=== PATIENT | female | born 1940 | race Caucasian/White ===

== ENCOUNTER → 2017-09-18 06:36 | Outpatient (CLI) | payer MEDICARE, OTHER, SELFPAY ==
--- NOTE | 2017-09-18 15:30 | STRESSREP ---
Stress Test Report Date: 09/18/2017 Procedure: Pharmacologic stress nuclear imaging study Indications: Shortness of breath/dyspnea; palpitations Consent: Per the patient Procedure: The patient underwent pharmacologic (Regadenoson) evaluation with a peak heart rate of 103 bpm (72% predicted maximal heart rate) with a peak blood pressure 140/64 mmHg. The baseline ECG demonstrated normal sinus rhythm subtle nonspecific ST/T-wave abnormality. The peak pharmacologic ECG demonstrated no obvious ECG changes. There were no cardiac dysrhythmias pretest, during pharmacologic infusion, or recovery. There was no report of chest discomfort during pharmacologic infusion or recovery. The examination was discontinued secondary to completion of protocol. Impression: 1. Pharmacologic (Regadenoson) evaluation 2. Peak pharmacologic ECG demonstrating continued nonspecific ST and T-wave abnormality with no obvious ECG changes compared to baseline 3. Nuclear images pending Myocardial perfusion imaging study: Technique: The patient was injected with 12.0 mCi of technetium 99m Cardiolite and subsequently rest SPECT Cardiolite nuclear imaging was obtained in the horizontal long, vertical long, and short axis views. The patient underwent pharmacologic (Regadenoson) evaluation with a peak heart rate of 103 bpm (72% predicted maximal heart rate) with a peak blood pressure 140/64 mmHg. The patient was injected with 34.7 mCi of technetium 99m Cardiolite and subsequently stress SPECT Cardiolite nuclear imaging was obtained in the horizontal long, vertical long, and short axis views. A gated Cardiolite study at peak stress was obtained. Interpretation: Rest and stress SPECT Cardiolite nuclear imaging status post realignment, normalization, and attenuation correction, demonstrates the appearance of relative uniform tracer uptake and myocardial perfusion appearing within normal limits. There is end systolic thickening and brightening. The gated Cardiolite study demonstrates myocardial thickening and inward wall motion. The reported LVEF is 83%. Impression: 1. Rest and stress SPECT Cardiolite nuclear imaging demonstrates the appearance of relative uniform tracer uptake and myocardial perfusion appearing within normal limits. 2. The gated Cardiolite study reports an LVEF of 83%. This note was generated with [employer] software. It may contain incorrect words, spelling, and punctuation that were not noted in checking the note before signing.
== END ==
PROVIDERS: Family Provider Internal Medicine; PCP Internal Medicine; Visit Provider Family Medicine
DX: R06.02 Shortness of breath (principal); R00.2 Palpitations; R07.89 Other chest pain
CPT/HCPCS: 78452; 93017; A9500; A4216; J2785

== ENCOUNTER 2019-07-10 00:27 | Emergency (ER) | payer MEDICARE, OTHER, SELFPAY ==
[2019-07-10 00:28] VITALS: BP 183/87; PULSE 89; RESP 16; TEMP 36.6; O2SAT 94; BMI 35.1
[2019-07-10 00:31] VITALS: BP 162/86
--- NOTE | 2019-07-10 00:43 | ED.VIS.GEN ---
History of Present Illness Chief Complaint: Hyperglycemia Informant: Patient, Significant Other Onset: Today Narrative: Patient states that earlier today she had a cortisone injection to her right knee. She was advised that it may raise her blood sugar as she is a diabetic. Tonight it was 285. She called the nursing line. They asked her to take her blood pressure and it was elevated and told her to come to the emergency room. She had a slight headache. No chest pain or shortness of breath. No exertional symptoms. No vision changes. No neurologic deficits. Past Medical History - Allergies and Home Meds Allergies/Adverse Reactions: Allergies No Known Allergies Allergy (Verified 10/19/17 12:35) Primary Care Physician: Martha Gerard MD [Primary Care Provider] - 3-5 Days if not improving Surgical History: appendectomy, hysterectomy, tonsillectomy, - Smoking Status: Former smoker Review of Systems General: Denies: Chills, Fever, Sweats Eyes: Denies: Visual changes - bilaterally, Diplopia ENT: Denies: Rhinorrhea, Sore throat Cardiovascular: Denies: Chest pain, Palpitations Respiratory: Denies: Dyspnea, Cough, Dyspnea on exertion Gastrointestinal: Denies: Abdominal pain, Nausea, Vomiting, Diarrhea, Melena, Hematochezia Genitourinary: Denies: Dysuria, Hematuria, Frequency Musculoskeletal: Denies: Back pain, Extremity Pain Skin: Denies: Rash, Wounds Neurological: Reports: Headache. Denies: Weakness, Numbness Psych: Denies: Depression, Anxiety, Suicidal thoughts, Suicidal ideations Endocrine: Denies: Polyuria, Polydipsia, Heat intolerance Hematologic: Denies: Easy bruising, Easy bleeding, Lymphadenopathy Allergy: Denies: Uticaria, Swelling of the mouth, Swelling of the tongue Physical Exam Vital Signs/Narrative: Vital Signs Temp Pulse Resp BP Pulse Ox 07/10/19 00:31 162/86 H 07/10/19 00:28 97.8 F 89 16 183/87 H 94 Inital Vital Signs reviewed: Yes General: Well nourished, Well developed, No Acute Distress Head: Normocephalic, Atraumatic Eyes: Perrl, EOMI ENT: Moist mucous membranes, No rhinorrhea Neck: Supple, Nontender Cardiovascular: Regular rate, Regular rhythm, No murmurs Respiratory: No distress, CTA bilaterally, Chest nontender Abdomen: Soft, Nontender, Nondistended, Normal bowel sounds Back: Nontender, Normal Inspection Extremities: Nontender, No edema Skin: Normal color, No rash Neurological: Alert, Oriented x3, Cranial nerves II-XII grossly intact, Normal Strength, Normal Sensation Psychological: Normal affect, Normal Mood Diagnostic/Tx/Re-eval - Medical Decision Making Annual blood pressure is 166/82. I explained to the patient the cortisone commonly can cause elevated blood sugars as well as elevated blood pressure. I do not see any red flags tonight regarding her pressures. I would have her follow-up with her doctor return if worsening or concerns ED Disposition - Plan for ED Patient: Disposition: Home or Assisted Living Diagnosis: Medication side effect Instructions: DRUG REACTION, Other Referrals: Martha Gerard MD [Primary Care Provider] - 3-5 Days if not improving
[2019-07-10 01:01] VITALS: BP 166/82; RESP 16
[2019-07-10 01:21] VITALS: BP 166/82; PULSE 85; RESP 18; O2SAT 96
[2019-07-10 07:10] LABS: Bedside Glucose 212 mg/dL (70-110)
== END 2019-07-10 01:21 | disposition home or self-care (01) ==
PROVIDERS: Emergency Provider Emergency Medicine; Family Provider Internal Medicine; PCP Internal Medicine
DX: E11.65 Type 2 diabetes mellitus with hyperglycemia (principal); T38.0X5A Adverse effect of glucocorticoids and synthetic analogues, initial encounter; Y92.9 Unspecified place or not applicable; Z79.84 Long term (current) use of oral hypoglycemic drugs; Z79.899 Other long term (current) drug therapy; Z87.891 Personal history of nicotine dependence
CPT/HCPCS: 82962; 99282

== ENCOUNTER → 2023-12-25 | Outpatient (CLI) | payer MEDICARE, SELFPAY ==
--- NOTE | 2023-12-25 09:22 | BI_ITS ---
MAMMOGRAPHY - BILATERAL DIAGNOSTIC REASON FOR EXAM: Female, 83 years old. Palpable lump in the deep slightly inferior aspect of the left breast. PERTINENT HISTORY: Mother with breast cancer. Aunt with breast cancer. TECHNIQUE: Digital bilateral breast gucci (3D mammographic acquisition) in the CC and MLO projections. 2-D mediolateral oblique (MLO) and craniocaudad (CC) views of both breasts were obtained. CAD: Full Field Digital Mammography with Computer Added Detection was performed. COMPARISON: Comparison is made with prior study dated October 30, 2013. FINDINGS: Breast Composition: There are scattered areas of fibroglandular density. There are no dominant masses or suspicious calcifications. The previously seen nodular density in the upper outer quadrant of the right breast is not seen at this time. Interval resolution of a nodular density in the deep inferior central portion of the left breast. No new nodule is seen. Stable small benign-appearing lateral axillary lymph nodes. No other significant abnormalities are identified. BI/DIAG MAMM W/CAD, BILAT IMPRESSION: Negative diagnostic mammogram. With the patient''s history of a palpable lump in the left breast, correlation with ultrasound is recommended. ASSESSMENT CATEGORY: BIRADS Category 0: Incomplete. Need additional imaging evaluation. A letter regarding these results will be sent to the patient by the facility within 30 days. Approximately 10% of breast cancers are not detected by mammography. A normal mammogram should not delay biopsy of a clinically suspicious abnormality. Electronically Signed: Basil Walker MD at 12:34 EDT ,
--- NOTE | 2023-12-25 09:23 | US_ITS ---
STUDY: ULTRASOUND BREAST - LEFT REASON FOR EXAM: Female, 83 years old. Palpable lump left breast. TECHNIQUE: Axial and longitudinal images of the LEFT breast were performed with a high resolution ultrasound transducer. # OF IMAGES: 8 COMPARISON: Comparison is made with prior mammogram done earlier today. FINDINGS: LEFT Breast: The palpable lump corresponds to a small superficial sebaceous cyst measuring 7 mm x 7 mm x 4 mm. This lies just deep to the subcutaneous tissue. US/Breast Limited Unilateral IMPRESSION: The palpable lump corresponds to a sebaceous cyst measuring 7 mm x 7 mm x 4 mm just deep to the subcutaneous tissue. ASSESSMENT CATEGORY: BIRADS Category 2: Benign. A letter regarding these results will be sent to the patient by the facility within 30 days. Electronically Signed: Basil Walker MD at 14:43 EDT ,
== END | disposition home or self-care (01) ==
LOC: OPBI 09:18
PROVIDERS: PCP Internal Medicine; Referring Provider Clinical Nurse Specialist; Visit Provider Clinical Nurse Specialist
DX: N63.24 Unspecified lump in the left breast, lower inner quadrant (principal); Z87.898 Personal history of other specified conditions
CPT/HCPCS: 76642; 77062; 77066; G0279

== ENCOUNTER → 2025-02-23 | Outpatient (CLI) | payer MEDICARE, SELFPAY ==
--- NOTE | 2025-02-23 10:17 | RAD_ITS ---
PROCEDURE: LUMBAR SPINE 2 OR 3 VIEWS 02/23/2025 REASON FOR EXAM: SPRAIN OF LIGAMENTS OF LUMBAR SPINE, INITIAL ENCOUNTER TECHNIQUE: LUMBAR SPINE 2 OR 3 VIEWS COMPARISON: No FINDINGS: Moderate S shaped scoliosis. Diffuse facet arthritis, most severe L3 through S1. Multilevel moderately severe disc space narrowing, endplate sclerosis, osteophyte formation. Grade 1 anterolisthesis, L4. No acute bone or soft tissue pathology. RAD/Lumbar Spine 2 or 3 Views IMPRESSION: Lumbar spine scoliosis and degeneration Reading Location[facility]
== END | disposition home or self-care (01) ==
LOC: RAD 10:05
PROVIDERS: PCP Internal Medicine; Referring Provider Chiropractor; Visit Provider Chiropractor
DX: S33.5XXA Sprain of ligaments of lumbar spine, initial encounter (principal)
CPT/HCPCS: 72100

== ENCOUNTER → 2025-03-12 | Outpatient (CLI) | payer MEDICARE, SELFPAY ==
[2025-03-12 12:18] LABS: Anion Gap 11 (5-15); BUN 35 mg/dL (4-19); BUN/Creat Ratio 22.7 RATIO (10-20); Calcium,Total 9.3 mg/dL (7.6-11.0); Carbon Dioxide 24.2 mmol/L (21.0-32.0); Chloride 103 mmol/L (98-108); Glucose 122 mg/dL (70-99); Potassium 4.6 mmol/L (3.3-5.1)
[2025-03-12 17:52] LABS: Xtra Tube Kwok EXTRA TUBE
== END | disposition home or self-care (01) ==
LOC: POLAB3 09:51
PROVIDERS: PCP Internal Medicine; Visit Provider Internal Medicine Nephrology
DX: N18.32 Chronic kidney disease, stage 3b (principal); N17.9 Acute kidney failure, unspecified
CPT/HCPCS: 36415; 80048

== ENCOUNTER → 2025-03-23 | Outpatient (CLI) | payer MEDICARE, SELFPAY ==
--- NOTE | 2025-03-23 11:36 | US_ITS ---
PROCEDURE: KIDNEY AND BLADDER 03/23/2025 REASON FOR EXAM: ACUTE RENAL FAILURE TECHNIQUE: KIDNEY AND BLADDER COMPARISON: None FINDINGS: Kidneys: Normal renal sizes, parenchymal thicknesses, and echotextures. [place]: No evidence of hydronephrosis. Cysts or Masses: No cysts or large solid renal masses. Other: There are 2 nonobstructive right intrarenal calculi. The larger measures 6 mm x 5 mm x 3 mm. RIGHT Kidney Size: 9.4 cm x 0.9 cm x 5.3 cm Volume: 127.85 mL Cortical Thickness (if discernible): 15 mm (>6mm is normal) LEFT Kidney Size: 9.2 cm x 4.5 cm x 4.9 cm Volume: 104.73 mL Cortical Thickness (if discernible): 12 mm (>6mm is normal) The urinary bladder is unremarkable. US/Kidney and Bladder IMPRESSION: NORMAL RENAL ULTRASOUND. There are 2 nonobstructive right intrarenal calculi. No evidence of hydronephrosis. Reading Location: [id number]
== END | disposition home or self-care (01) ==
LOC: US 11:33
PROVIDERS: PCP Internal Medicine; Referring Provider Internal Medicine Nephrology; Visit Provider Internal Medicine Nephrology
DX: N17.9 Acute kidney failure, unspecified (principal); N18.32 Chronic kidney disease, stage 3b
CPT/HCPCS: 76770